=== PATIENT | female | born 1955 | race Caucasian/White ===

== ENCOUNTER 2020-07-24 09:39 | Emergency (ER) | payer OTHER, SELFPAY ==
--- NOTE | ~2020-07-24 | XR_ITS ---
EXAMINATION: XR lumbar spine 2-3V EXAM DATE: 07/24/2020 10:32 INDICATION: Chronic right hip pain. TECHNIQUE: Lumber spine frontal, lateral, lateral L5-S1 projections for interpretation. There is no prior study for comparison. FINDINGS: There is moderate disc disease at L4-5 with 2 mm anterolisthesis. The vertebral bodies are otherwise aligned. The vertebral body and disc heights are otherwise well maintained. No spondylolys is. There is mild to moderate aortic arterial sclerosis and evidence of mild aortic ectasia. There is mild to moderate lumbar facet arthropathy. Sacrum, sacroiliac joints, sacral arcuate lines are intac t. Paraspinal soft tissue is unremarkable. Bowel anastomotic material overlying the sacrum. IMPRESSION: 1. L4-5 moderate disc disease, minimal anterolisthesis. 2. Mild to moderate facet arthropathy. Reviewed, dictated and finalized at location A.
--- NOTE | ~2020-07-24 | XR_ITS ---
EXAMINATION: XR hip RT min 2V EXAM DATE: 07/24/2020 10:32 INDICATION: Chronic right hip pain. TECHNIQUE: Right hip frontal, crosstable lateral and 'frog-leg' projections for interpretation. Ther e is no prior study for comparison. FINDINGS: Smooth right hip femoral head contour, no radiographic evidence of avascular necrosis. The re is mild to moderate right hip primary osteoarthritis. There are no acute fractures or dislocations identified. There is no subcutaneous gas. The soft tissue is unremarkable. There are no radiopaq ue foreign bodies. IMPRESSION: Mild to moderate right hip osteoarthritis. Reviewed, dictated and finalized at location A.
[2020-07-24 10:07] VITALS: BP 180/92; PULSE 102; RESP 16; TEMP 36.8; O2SAT 99
--- NOTE | 2020-07-24 10:08 | ED.LOWEXIN ---
HPI - Extremity Injury (Lower) General Chief Complaint: Extremity Injury, Lower Stated Complaint: Hip,leg Pain Time Seen by Provider: 07/24/20 10:00 Source: patient Mode of arrival: ambulatory Limitations: no limitations History of Present Illness HPI Narrative: Emiliano Yeager is a 64-year-old female with a history of breast cancer with chemo and radiation, diverticulitis, who fell down stairs on April 18 and since that time is been having pain in her right lower back and hip that radiates into her right leg. She states it is excruciating at times is unable to bend straight down to pick something up without this level of pain Related Data Allergies Allergy/AdvReac Type Severity Reaction Status Date / Time codeine Allergy Intermediate Itching Verified 07/24/20 10:09 meperidine Allergy Unknown Swelling Verified 07/24/20 10:09 Review of Systems Review of Systems: Narrative: CONSTITUTIONAL: Denies fever, chills, sweats. EYES: Denies visual changes, redness, discharge. ENT: Denies rhinorrhea, congestion, sore throat, otalgia. CARDIOVASCULAR: Denies chest pain, palpitations, edema. RESPIRATORY: Denies dyspnea, wheezing, cough GASTROINTESTINAL: Denies abdominal pain, nausea, vomiting, diarrhea. GENITOURINARY: Denies dysuria, hematuria, abnormal discharge SKIN: Denies rash or itching. NEUROLOGIC: Denies numbness, or focal weakness. PSYCHIATRIC: Denies anxiety or depression. Right hip pain that radiates into lower leg PMF[facility] Past Medical History Medical History Diverticulitis large intestine History of breast cancer Surgical History Surgical History History of bowel resection Family History Family History (Updated 07/24/20 @ 10:11 by Sofiya Fernandez CNP) Other No acute medical problems Social History Social History (Updated 07/24/20 @ 10:12 by Sofiya Fernandez CNP) Smoking status: Never smoker Alcohol intake: never Gender identity (if verbalized by the patient): Female Comments At time of signature, I agree with nursing past medical, surgical, social and family history. There is no relevant family history pertinent to the presenting complaint. Exam Narrative: Exam Narrative: GENERAL: This is a well-nourished, well-developed patient, in moderate distress. HEAD: normocephalic, atraumatic. EYES: Sclera clear/white. Vision is grossly intact. EARS: External ears normal. Hearing grossly intact. NOSE: External nose normal without nasal discharge, nares without redness, no rhinorrhea. THROAT: Mucous membranes moist, NECK: Neck supple, non-tender CARDIOVASCULAR: Tachycardic rate and rhythm without murmurs, gallops, or rubs. RESPIRATORY: Clear to auscultation. Breath sounds equal bilaterally. No wheezes, rales, or rhonchi. GASTROINTESTINAL: Abdomen soft, SKIN: warm, intact with no suspicious lesions or rash, good texture and turgor. NEURO: awake, alert, and oriented to person, place and time. There were no obvious focal neurologic abnormalities. Steady gait EXTREMITIES: Normal range of motion. BACK: Nontender without deformity; unable to bend forward, must push leg out to bend, able to flex knee with pain Course Course Emergency Course: 61-year-old female comes to [facility] with complaints of right hip pain that radiates into her leg since a fall downstairs on April 18 X-ray of hip and lower back-R hip-mild to moderate osteoarthritis, lumbar spine L4-5 moderate disc disease and mild to moderate facet and thoracic arthropathy Started on muscle relaxant prednisone and limited pain medication Vital Signs Vital signs: Vital Signs Temperature 98.2 F 07/24/20 10:07 Pulse Rate 102 H 07/24/20 10:07 Respiratory Rate 16 07/24/20 10:07 Blood Pressure 180/92 H 07/24/20 10:07 Pulse Oximetry 99 07/24/20 10:07 Temperature 98.2 F 07/24/20 10:07 Pulse Rate 102 H 07/24/20 10:07 Respira
[2020-07-24] MEDS: predniSONE 20 MG TABLET 60 MG PO (11:03)
== END 2020-07-24 11:15 | disposition home or self-care (01) ==
PROVIDERS: Emergency Provider Nurse Practitioner
DX: M54.31 Sciatica, right side (principal); Z85.3 Personal history of malignant neoplasm of breast; Z92.21 Personal history of antineoplastic chemotherapy; Z92.3 Personal history of irradiation
CPT/HCPCS: 72100; 73502; 99213; G0463; J7512

== ENCOUNTER 2020-12-17 17:36 | Emergency (ER) | payer OTHER, SELFPAY ==
[2020-12-17 18:00] VITALS: BP 184/76; PULSE 84; RESP 16; TEMP 36.6; O2SAT 99
--- NOTE | 2020-12-17 18:20 | ED.FEMALEGU ---
HPI - Female Genitourinary General Chief complaint: Urogenital-Female Stated complaint: uti Time Seen by Provider: 12/17/20 18:21 Source: patient Mode of arrival: ambulatory Limitations: no limitations History of Present Illness HPI Narrative: 65-year-old female presents to the [facility] with burning, urgency and right flank pain for the last couple days, worse yesterday. Denies any vomiting or diarrhea. No chest pain or abdominal pain. States that week or so ago she started using fragrant pantiliners and then started having burning and urgency with urination. Developed right lower flank pain yesterday came in today because the pain and urinary symptoms became worse. Had some nausea without nausea or vomiting. Tried calling primary care provider but they are only in the office 3 days a week and was unable to schedule. MD elicited complaint: UTI Related Data Home Medications Medication Instructions Recorded Confirmed amlodipine 12/17/20 Allergies Allergy/AdvReac Type Severity Reaction Status Date / Time codeine Allergy Intermediate Itching Verified 07/24/20 10:09 meperidine Allergy Unknown Swelling Verified 07/24/20 10:09 Review of Systems Constitutional: Constitutional: Reports no additional constitutional complaints, Denies chills and Denies fatigue Eyes: Eyes: Reports no additional eye complaints ENT: Reports system reviewed and no additional complaints, except as documented Cardiovascular: Cardiovascular: Reports no additional cardiovascular complaints Respiratory: Respiratory: Reports no additional respiratory complaints Gastrointestinal: Gastrointestinal: Reports no additional gastrointestinal complaints Genitourinary: Genitourinary: Reports as per HPI, Reports nocturia and Reports dysuria Musculoskeletal: Musculoskeletal: Reports as per HPI and Reports back pain Integumentary/Breasts: Skin/Breast: Reports system reviewed and no additional complaints, except as docu Neurologic: Reports system reviewed and no additional complaints, except as documented Psychiatric: Psychiatric: Reports no additional psychiatric complaints Allergic/Immunologic: Allergic/Immunologic: Reports no additional allergic/immunologic complaints [facility] Past Medical History Medical History Diverticulitis large intestine History of breast cancer Surgical History Surgical History History of bowel resection Family History Family History Other No acute medical problems Social History Social History (Reviewed 12/18/20 @ 10:30 by Jesica Cruz Smoking status: Never smoker Alcohol intake: never Gender identity (if verbalized by the patient): Female Comments At the time of my signature, I reviewed and agree with the nursing past medical, surgical, social, and family history. There is no relevant family history pertinent to the patient complaint. Exam Const: General: healthy appearing, no acute distress and alert Nutritional Appearance: well nourished Orientation/consciousness: patient oriented x3 Limitations: no limitations HENMT: Head: normal to inspection Ears: external ears normal Eyes: Pupils: Equal, round and reactive pupils present Neck: Neck: normal visual inspection, no lymphadenopathy and no meningeal signs Chest: Chest palpation & inspection: normal inspection of the chest Resp: Effort & Inspection: normal respiratory effort and no use of accessory muscles Auscultation: clear to auscultation bilaterally, no crackles, no rales, no rhonchi and no wheezes Cardio: Rate: regular rate Rhythm: regular rhythm GI: GI Palp: Yes Soft to palpation, No Tenderness to palpation present (GI) and No Guarding due to palpation present (GI) : General: Yes no CVA tenderness Back/Spine/Pelvis: Back: no CVA tenderness Skin: General skin exam: normal colo
== END 2020-12-17 18:33 | disposition home or self-care (01) ==
PROVIDERS: Emergency Provider Nurse Practitioner
DX: N39.0 Urinary tract infection, site not specified (principal); Z85.3 Personal history of malignant neoplasm of breast
CPT/HCPCS: 81003; 87086; 99213; G0463

== ENCOUNTER 2021-10-18 18:20 | Emergency (ER) | payer OTHER, SELFPAY ==
--- NOTE | 2021-10-18 18:27 | ED.BACK ---
HPI - Back Pain/Injury General Chief Complaint: Back Pain/Injury Stated Complaint: lower back pain Time Seen by Provider: 10/18/21 18:28 Source: patient and RN notes reviewed Mode of arrival: ambulatory Limitations: no limitations History of Present Illness HPI Narrative: 66-year-old female presents to the [facility] with complaints of right lower back pain. Patient reports that it feels just like her sciatica. Patient has been given a courtesy call to make a history of hypertension and states she does take her amlodipine. States that she is in pain and that is why her blood pressure is up. Related Data Home Medications Medication Instructions Recorded Confirmed amlodipine 10 mg tablet 10 mg PO DAILY 10/18/21 10/18/21 Allergies Allergy/AdvReac Type Severity Reaction Status Date / Time codeine Allergy Intermediate Itching Verified 10/18/21 18:28 meperidine Allergy Unknown Swelling Verified 10/18/21 18:28 Review of Systems Review of Systems: All systems reviewed & are unremarkable except as noted in HPI and below Constitutional: Constitutional: Reports no additional constitutional complaints, Denies chills and Denies fever(s) Eyes: Eyes: Reports no additional eye complaints ENT: Reports system reviewed and no additional complaints, except as documented Cardiovascular: Cardiovascular: Reports no additional cardiovascular complaints Respiratory: Respiratory: Reports no additional respiratory complaints Gastrointestinal: Gastrointestinal: Reports no additional gastrointestinal complaints Musculoskeletal: Musculoskeletal: Reports as per HPI and Reports back pain (right lower SI ) Integumentary/Breasts: Skin/Breast: Reports system reviewed and no additional complaints, except as docu Neurologic: Reports system reviewed and no additional complaints, except as documented Psychiatric: Psychiatric: Reports no additional psychiatric complaints Allergic/Immunologic: Allergic/Immunologic: Reports no additional allergic/immunologic complaints ON LICENSE OF [facility] Past Medical History Medical History Diverticulitis large intestine History of breast cancer Surgical History Surgical History History of bowel resection Family History Family History Other No acute medical problems Social History Social History Smoking status: Never smoker Alcohol intake: never Gender identity (if verbalized by the patient): Female Comments At the time of my signature, I reviewed and agree with the nursing past medical, surgical, social, and family history. There is no relevant family history pertinent to the patient complaint. Exam Const: General: healthy appearing, no acute distress and alert Nutritional Appearance: well nourished Orientation/consciousness: patient oriented x3 Limitations: no limitations HENMT: Head: normal to inspection Ears: external ears normal Eyes: General: appearance normal, both eyes and all related structures Pupils: Equal, round and reactive pupils present Neck: Neck: normal visual inspection, no lymphadenopathy and no meningeal signs Chest: Chest palpation & inspection: normal inspection of the chest Resp: Effort & Inspection: normal respiratory effort and no use of accessory muscles Auscultation: clear to auscultation bilaterally, no crackles, no rales, no rhonchi and no wheezes Cardio: Rate: regular rate Rhythm: regular rhythm GI: GI Palp: Yes Soft to palpation and No Tenderness to palpation present (GI) Back/Spine/Pelvis: Back: no CVA tenderness Cervical Spine: normal cervical lordosis Thoracic/Lumbar Spine: thoracic and lumbar spine normal to inspection, thoraco-lumbar ROM limited, No thoracic spinal tenderness and No lumbar spinal tenderness Sacroiliac joints: on the right
[2021-10-18 18:28] VITALS: BP 181/87; PULSE 115; RESP 16; TEMP 36.4; O2SAT 99
[2021-10-18 18:35] VITALS: BP 181/87; PULSE 115; RESP 16; TEMP 36.4; O2SAT 99
== END 2021-10-18 18:40 | disposition home or self-care (01) ==
PROVIDERS: Emergency Provider Nurse Practitioner
DX: M54.41 Lumbago with sciatica, right side (principal)
CPT/HCPCS: 99213; G0463

== ENCOUNTER 2022-09-09 08:43 | Emergency (ER) | payer OTHER, SELFPAY ==
--- NOTE | 2022-09-09 08:52 | ED.GENADULT ---
HPI - General Adult General Chief complaint: Ear Stated complaint: lost hearing in right ear Source: patient and RN notes reviewed History of Present Illness HPI narrative: 67-year-old female presents to Urgent Care complains loss of hearing in her right ear x2 days. Patient reports some congestion. Patient states she is not currently taking hydroxyzine at night and will substitute with Benadryl occasionally for her eczema flare-up. Patient denies any ear pain, drainage from her ear, fevers, chills, or sore throat. Some parts of this dictation were generated by voice recognition software and may contain typographical and/or grammatical inaccuracies. Related Data Home Medications Medication Instructions Recorded Confirmed amlodipine 10 mg tablet 10 mg PO DAILY 10/18/21 09/09/22 hydroxyzine HCl 25 mg tablet 25 mg PO DAILY 09/09/22 09/09/22 Allergies Allergy/AdvReac Type Severity Reaction Status Date / Time codeine Allergy Intermediate Itching Verified 09/09/22 09:03 meperidine Allergy Intermediate Swelling Verified 09/09/22 09:03 Review of Systems Review of Systems: Pertinent positives and pertinent negatives per HPI. [facility] Past Medical History Medical History Diverticulitis large intestine History of breast cancer Surgical History Surgical History History of bowel resection Family History Family History Other No acute medical problems Social History Social History Smoking status: Never smoker Alcohol intake: never Gender identity (if verbalized by the patient): Female Comments At the time of my signature, I reviewed and agree with the nursing past medical, surgical, social, and family history. There is no relevant family history pertinent to the patient complaint. Exam Narrative: GENERAL: This is a well-nourished, well-developed patient, in no apparent distress. HEAD: normocephalic, atraumatic. EYES: Sclera clear/white. Vision is grossly intact. EARS: External ears normal, auditory canals clear and without drainage, TMs normal without perforation. Hearing grossly intact. Right sided TM noted to have clear effusion posteriorly. NO erythrema or drainage noted. NOSE: External nose normal with no obvious nasal discharge, nares without redness, no rhinorrhea. THROAT: Mucous membranes moist, posterior pharynx clear. NECK: Neck supple, non-tender without lymphadenopathy, masses or thyromegaly. CARDIOVASCULAR: Regular rate and rhythm without murmurs, gallops, or rubs. RESPIRATORY: Clear to auscultation. Breath sounds equal bilaterally. No wheezes, rales, or rhonchi. SKIN: warm, intact with no suspicious lesions or rash, good texture and turgor. NEURO: awake, alert, and oriented to person, place and time. There were no obvious focal neurologic abnormalities. Course Course Level of Care: Express Care Visit Vital Signs Vital signs: Vital Signs Temperature 96.4 F L 09/09/22 08:56 Pulse Rate 95 09/09/22 08:56 Respiratory Rate 16 09/09/22 08:56 Blood Pressure 158/84 H 09/09/22 08:56 Pulse Oximetry 99 09/09/22 08:56 Oxygen Delivery Room Air 09/09/22 08:56 Temperature 96.4 F L 09/09/22 08:56 Pulse Rate 95 09/09/22 08:56 Respiratory Rate 16 09/09/22 08:56 Blood Pressure 158/84 H 09/09/22 08:56 Pulse Oximetry 99 09/09/22 08:56 Oxygen Delivery Room Air 09/09/22 08:56 reviewed Medical Decision Making MDM Narrative Medical decision making narrative: Use the Flonase twice a day x 5-7 days. Continue taking the hydroxyzine or Benadryl. Follow up with ENT if symptoms persist over 7 days. Differential Diagnosis Differential Diagnosis: cerumen impaction, acute otitis media, otitis media with effusion Vital Signs Vital Signs: V
[2022-09-09 08:56] VITALS: BP 158/84; PULSE 95; RESP 16; TEMP 35.8; O2SAT 99
== END 2022-09-09 09:18 | disposition home or self-care (01) ==
PROVIDERS: Emergency Provider Nurse Practitioner Family
DX: H65.91 Unspecified nonsuppurative otitis media, right ear (principal); Z85.3 Personal history of malignant neoplasm of breast
CPT/HCPCS: 99203; G0463

== ENCOUNTER 2022-11-20 15:04 | Emergency (ER) | payer OTHER, SELFPAY ==
--- NOTE | 2022-11-20 15:09 | ED.GENADULT ---
HPI - General Adult General Chief complaint: Back Pain/Injury Stated complaint: Lower Back Pain Time Seen by Provider: 11/20/22 15:09 Source: patient Mode of arrival: ambulatory Limitations: no limitations History of Present Illness HPI narrative: 67-year-old female patient presents to the [facility] with complaints of right-sided low back pain x1 month. Patient states she had a stay in a hotel last night and states that she thinks that made the back pain significantly worse. Patient states that she does get radiating pain to the buttocks and around to the anterior thigh. Denies any numbness or tingling down the extremities. Denies any loss of bowel or bladder control. Denies any falls or recent trauma. Related Data Home Medications Medication Instructions Recorded Confirmed amlodipine 10 mg tablet 10 mg PO DAILY 10/18/21 11/20/22 hydroxyzine HCl 25 mg tablet 25 mg PO DAILY 09/09/22 11/20/22 Allergies Allergy/AdvReac Type Severity Reaction Status Date / Time codeine Allergy Intermediate Itching Verified 11/20/22 15:15 meperidine Allergy Intermediate Swelling Verified 11/20/22 15:15 Review of Systems Review of Systems: CONSTITUTIONAL: Denies fever, chills, or sweats. EYES: Denies visual changes, redness, or discharge. ENT: Denies rhinorrhea, congestion, sore throat, or otalgia. CARDIOVASCULAR: Denies chest pain, palpitations, or edema. RESPIRATORY: Denies cough or dyspnea. GASTROINTESTINAL: Denies abdominal pain, nausea, vomiting, or diarrhea. GENITOURINARY: Denies dysuria or hematuria. SKIN: Denies rash or itching. MUSCULOSKELETAL: Positive right side back pain, joint pain, or myalgia. NEUROLOGIC: Denies headache, numbness, or weakness. PSYCHIATRIC: Denies anxiety or depression. [facility] Past Medical History Medical History Diverticulitis large intestine History of breast cancer Surgical History Surgical History History of bowel resection Family History Family History Other No acute medical problems Social History Social History Smoking status: Never smoker Alcohol intake: never Gender identity (if verbalized by the patient): Female Comments At the time of my signature I agree with nursing past medical history, surgical, social, and family history. There is no relevant family history pertinent to the presenting complaint. Exam Narrative: GENERAL: Well-appearing, well-nourished, and in no acute distress. HEAD: Normocephalic, atraumatic. EYES: PERRLA and EOMI. ENT: Nares clear, no rhinorrhea or epistaxis. Mucous membranes moist. NECK: Supple. No lymphadenopathy CHEST: Clear to auscultation. No respiratory distress. HEART: Regular rate and rhythm. No murmur heard. Normal peripheral pulses. ABDOMEN: Soft, nontender, nondistended, normal active bowel sounds. EXTREMITIES: Normal range of motion. No edema. BACK: Patient is able to ambulated without assistance. Pt is seated on the stretcher in no obvouis distress. No surface trauma noted. No muscle tenderness to Palpation. Tenderness noted to the middle of the right buttocks and to the lateral side of the L5 area on palpation. No obvious spasm or mass. No step-offs or deformity noted to the cervical, thoracic or lumbar spine to firm Palpation at the midline. No CVA tenderness to percussion. No saddle anesthesia. ROM: able to stand erect. Decrease in flexion, extension, Lateral bending and rotation. SKIN: Warm, dry, no rash. NEURO: No focal deficits. Alert and oriented x3. Course Course Level of Care: Express Care Visit Vital Signs Vital signs: Vital Signs Temperature 37.1 C 11/20/22 15:13 Pulse Rate 104 H 11/20/22 15:13 Respiratory Rate 16 11/20/22 15:13 Blood Pressure 143/76 H 11/20/22 15:13 Pulse Oxime
[2022-11-20 15:13] VITALS: BP 143/76; PULSE 104; RESP 16; TEMP 37.1; O2SAT 98
[2022-11-20 15:16] VITALS: BP 143/76; PULSE 104; RESP 16; TEMP 37.1; O2SAT 98
== END 2022-11-20 15:35 | disposition home or self-care (01) ==
PROVIDERS: Emergency Provider Nurse Practitioner Family
DX: M54.31 Sciatica, right side (principal); Z85.3 Personal history of malignant neoplasm of breast
CPT/HCPCS: 99213; G0463

== ENCOUNTER 2023-10-07 12:46 | Emergency (ER) | payer OTHER, SELFPAY ==
--- NOTE | 2023-10-07 12:54 | ED.SKABFB ---
HPI - Skin/Abscess/Foreign Bdy General Chief complaint: Skin/Abscess/Foreign Body Stated complaint: Skin Irriation Time Seen by Provider: 10/07/23 13:11 Source: patient and RN notes reviewed Mode of arrival: ambulatory Limitations: no limitations History of Present Illness HPI narrative: 68-year-old female presents with concern for rash, itchy legs, itchiness and peeling skin on the palm of her hands, itchiness and healing skin on her scalp. She reports this is been going on for ?a long time?. She reports she has that appointment with a abalone fisherman but it is not until November. She denies swollen lips, swollen tongue. She denies new home care products, personal care products, medications. She has been using alcohol wipes on her hands. MD complaint: rash Related Data Home Medications Medication Instructions Recorded Confirmed amlodipine 10 mg tablet 10 mg PO DAILY 10/18/21 10/07/23 hydroxyzine HCl 25 mg tablet 25 mg PO DAILY 09/09/22 10/07/23 alprazolam 0.25 mg tablet 0.25 mg PO DIRECTED 10/07/23 10/07/23 Allergies Allergy/AdvReac Type Severity Reaction Status Date / Time codeine Allergy Intermediate Itching Verified 10/07/23 12:52 meperidine Allergy Intermediate Swelling Verified 10/07/23 12:52 Review of Systems Review of Systems: CONSTITUTIONAL: Denies malaise, chills, sweats, or fever. EYES: Denies redness, or discharge. ENT: Denies rhinorrhea, congestion, swollen lips, swollen tongue CARDIOVASCULAR: Denies chest pain, palpitations, or edema. RESPIRATORY: Denies cough or dyspnea. GASTROINTESTINAL: Denies abdominal pain, nausea, vomiting SKIN: Reports rash, itchy seeing, burning sting, peeling skin on the palm of the hands, legs, scalp MUSCULOSKELETAL: Denies joint pain or myalgia. NEUROLOGIC: Denies headache. All systems reviewed & are unremarkable except as noted in HPI and below PMFSH Past Medical History Medical History Diverticulitis large intestine History of breast cancer Surgical History Surgical History History of bowel resection Family History Family History Other No acute medical problems Social History Social History Smoking status: Never smoker Alcohol intake: never Gender identity (if verbalized by the patient): Female Comments At time of signature, agree with nursing past medical, surgical, social and family history. There is no relevant family history pertinent to the presenting complaint Exam Narrative: GENERAL: Well-appearing, well-nourished, and in no acute distress. HEAD: Normocephalic, atraumatic. EYES: PERRLA, conjunctivae clear, and EOMI. ENT: Mucous membranes moist. Oropharynx without edema, erythema or lesions. NECK: Supple. No lymphadenopathy CHEST: Clear to auscultation. No respiratory distress. HEART: Regular rate and rhythm. SKIN: Warm, dry. Papular rash noted to lower legs. No other rash noted, no peeling skin noted on the hands. Some flaky skin noted on the scalp NEURO: Alert and oriented x3. PSYCH: Normal mood and affect Course Course Emergency Course: Patient is aware of diagnosis, understands and agrees to treatment plan. Anticipatory guidance given. Patient agrees to follow-up as directed and is aware of reasons to seek care at the emergency department. Portions of this record may have been created with voice recognition software Level of Care: Express Care Visit Vital Signs Vital signs: Reviewed. MDM - Skin/Abscess/Foreign Bdy MDM Narrative Medical decision making narrative: Does not appear at this time to be erythema multiforme, bullous, SJS, TEN; no evidence at this time to suggest RMSF, endocarditis or Lyme disease; patient looks well, nontoxic and is tolerating oral intake; no neurologic signs or symptoms; no
[2023-10-07 13:04] VITALS: BP 152/67; PULSE 90; RESP 18; TEMP 36.5; O2SAT 100
== END 2023-10-07 13:25 | disposition home or self-care (01) ==
PROVIDERS: Emergency Provider Nurse Practitioner
DX: L30.9 Dermatitis, unspecified (principal); Z85.3 Personal history of malignant neoplasm of breast
CPT/HCPCS: 99213; G0463

== ENCOUNTER 2024-01-26 13:27 | Emergency (ER) | payer OTHER, SELFPAY ==
[2024-01-26 13:35] VITALS: BP 141/66; PULSE 89; RESP 18; TEMP 36.8; O2SAT 100
--- NOTE | 2024-01-26 13:41 | ED.GENADULT ---
HPI - General Adult General Chief complaint: Skin/Abscess/Foreign Body Stated complaint: rash Time Seen by Provider: 01/26/24 13:41 Source: patient, RN notes reviewed and old records reviewed Mode of arrival: ambulatory Limitations: no limitations History of Present Illness HPI narrative: 68-year-old female presents to the [facility] with complaints of a Rash since Tuesday, 4 days. Has taken Benadryl and used a topical cream. Denies any new creams ointments lotions detergents. Describes the rash as both itching and burning. Related Data Home Medications Medication Instructions Recorded Confirmed amlodipine 10 mg tablet 10 mg PO DAILY 10/18/21 01/26/24 alprazolam 0.25 mg tablet 0.25 mg PO DIRECTED 10/07/23 01/26/24 Allergies Allergy/AdvReac Type Severity Reaction Status Date / Time codeine Allergy Intermediate Itching Verified 10/07/23 12:52 meperidine Allergy Intermediate Swelling Verified 10/07/23 12:52 Review of Systems Review of Systems: All systems reviewed & are unremarkable except as noted in HPI and below Constitutional: Constitutional: Reports no additional constitutional complaints Eyes: Eyes: Reports no additional eye complaints ENT: Reports system reviewed and no additional complaints, except as documented Cardiovascular: Cardiovascular: Reports no additional cardiovascular complaints, Denies chest pain and Denies dyspnea Respiratory: Respiratory: Reports no additional respiratory complaints, Denies chest congestion, Denies cough and Denies dyspnea Gastrointestinal: Gastrointestinal: Reports no additional gastrointestinal complaints, Denies abdominal pain, Denies nausea and Denies vomiting Musculoskeletal: Musculoskeletal: Reports no additional musculoskeletal complaints Integumentary/Breasts: Skin/Breast: Reports as per HPI and Reports rash Neurologic: Reports system reviewed and no additional complaints, except as documented Psychiatric: Psychiatric: Reports no additional psychiatric complaints Allergic/Immunologic: Allergic/Immunologic: Reports no additional allergic/immunologic complaints [facility] Past Medical History Medical History Diverticulitis large intestine History of breast cancer Surgical History Surgical History History of bowel resection Family History Family History Other No acute medical problems Social History Social History Smoking status: Never smoker Alcohol intake: never Gender identity (if verbalized by the patient): Female Comments At the time of my signature, I reviewed and agree with the nursing past medical, surgical, social, and family history. There is no relevant family history pertinent to the patient complaint. Exam Const: General: cooperative, healthy appearing, comfortable, no acute distress, well developed, alert and well nourished Nutritional Appearance: well nourished Orientation/consciousness: patient oriented x3 Limitations: no limitations HENMT: Head: normal to inspection Ears: external ears normal Face/Nose/Sinus: Normal external nose present, normal facial exam and face symmetric Face and sinus: normal facial exam and face symmetric Eyes: General: appearance normal, both eyes and all related structures Alignment and Position: alignment normal Periorbital: periorbital findings normal Neck: Neck: normal visual inspection, full ROM, no lymphadenopathy and no meningeal signs Chest: Chest palpation & inspection: normal inspection of the chest Resp: Effort & Inspection: normal respiratory effort and able to speak in complete sentences Cardio: Rate: regular rate Skin: General skin exam: normal color and no rashes or lesions noted Lesions: no lesions Trauma: no lacerations or abrasions Wounds: no wounds Other:
== END 2024-01-26 14:12 | disposition home or self-care (01) ==
PROVIDERS: Emergency Provider Nurse Practitioner
DX: L30.9 Dermatitis, unspecified (principal); Z85.3 Personal history of malignant neoplasm of breast
CPT/HCPCS: 99213; G0463

== ENCOUNTER 2024-02-20 13:11 | Emergency (ER) | payer OTHER, SELFPAY ==
[2024-02-20 13:21] VITALS: BP 151/69; PULSE 102; RESP 20; TEMP 37.5; O2SAT 99
--- NOTE | 2024-02-20 13:41 | ED.SKABFB ---
HPI - Skin/Abscess/Foreign Bdy General Chief complaint: Skin/Abscess/Foreign Body Stated complaint: Skin Issues Source: patient, RN notes reviewed and old records reviewed Mode of arrival: ambulatory Limitations: no limitations History of Present Illness HPI narrative: Patient presents with complaints of generalized itching. She reports that she has had an itchy red rash for a couple of months. She does have an appointment scheduled with a ink jet operator. Last month she took oral steroids and said she had good results. She has tried multiple topicals with minimal improvement. She denies any recent change in lotions, soaps, detergents. No other concerns Related Data Home Medications Medication Instructions Recorded Confirmed amlodipine 10 mg tablet 10 mg PO DAILY 10/18/21 02/20/24 alprazolam 0.25 mg tablet 0.25 mg PO DIRECTED 10/07/23 02/20/24 Allergies Allergy/AdvReac Type Severity Reaction Status Date / Time codeine Allergy Intermediate Itching Verified 02/20/24 13:27 meperidine Allergy Intermediate Swelling Verified 02/20/24 13:27 Review of Systems Review of Systems: All systems reviewed & are unremarkable except as noted in HPI and below Constitutional: Constitutional: Reports no additional constitutional complaints ENT: Reports system reviewed and no additional complaints, except as documented Cardiovascular: Cardiovascular: Reports no additional cardiovascular complaints Respiratory: Respiratory: Reports no additional respiratory complaints Gastrointestinal: Gastrointestinal: Reports no additional gastrointestinal complaints Integumentary/Breasts: Skin/Breast: Reports system reviewed and no additional complaints, except as docu and Reports as per HPI [facility] Past Medical History Medical History Diverticulitis large intestine History of breast cancer Surgical History Surgical History History of bowel resection Family History Family History Other No acute medical problems Social History Social History Smoking status: Never smoker Alcohol intake: never Gender identity (if verbalized by the patient): Female Comments At the time of my signature, I reviewed and agree with the nursing past medical, surgical, social, and family history. There is no relevant family history pertinent to the patient complaint. Exam Const: General: cooperative, no acute distress, alert and awake Orientation/consciousness: oriented to person, oriented to place and oriented to time HENMT: Head: normal to inspection Resp: Effort & Inspection: normal respiratory effort and able to speak in complete sentences Auscultation: clear to auscultation bilaterally, no crackles, no rales, no rhonchi and no wheezes Cardio: Palpation: normal PMI Rate: regular rate Rhythm: regular rhythm Heart sounds: S1 normal heart sound present and S2 normal heart sound present Skin: General skin exam: no rashes or lesions noted Other: No rashes noted, but skin is generally red and appears irritated Neuro: General: oriented to person, oriented to place and oriented to time Cranial nerves: Yes CN's II-XII intact bilaterally Psych: Appearance: grossly normal Thought process: Normal thought process present Insight: Good insight present (Psych) Judgement: Good judgement present (Psych) Course Course Level of Care: Express Care Visit Vital Signs Vital signs: Vital Signs Temperature 99.5 F 02/20/24 13:21 Pulse Rate 102 H 02/20/24 13:21 Respiratory Rate 20 02/20/24 13:21 Blood Pressure 151/69 H 02/20/24 13:21 Pulse Oximetry 99 02/20/24 13:21 Oxygen Delivery Room Air 02/20/24 13:21 Temperature 99.5 F 02/20/24 13:21 Pulse Rate 102 H 02/20/24 13:21 Respiratory Rate 20 02/20/24 13:21 Blood Pressure 151/69 H 02/20/24 13:21 Pulse Oximetry 99 02/20/24 13:21 Oxygen Delivery Room Air 02/20/24 13:21 Reviewed MDM - Skin/Abscess/Foreign Bdy MDM Narrative Medical decision making narrative: Patient with no discernible rash. She does have red irritated skin. Has pending dermatology appointment. Start hydroxyzine while waiting. Discharge instructions reviewed with patient, as well as provided in writing per nursing staff. The instructions also include specific and strict return/GO TO THE ER as well as f/u information. All questions have been answered, and the patient deny any further questions with discharge and discharge plan. Some parts of this dictation were generated by voice recognition software and may contain typographical and/or grammatical inaccuracies. Differential Diagnosis Differential diagnosis: Likely viral exanthem, dermatophytosis and urticaria Discharge Plan Discharge Clinical Impression: Itching Patient Disposition: Home, Self-Care Condition: Stable Instructions: Antibiotic Form, Itchy Skin (ED) Additional Instructions: Take medications as prescribed. Follow with primary care provider. Emergency department for new or worse symptoms Patient Language: Brazilian Prescriptions: New hydroxyzine HCl 50 mg tablet 50 mg PO TID PRN (Reason: itching) Qty: 60 0RF hydroxyzine HCl 50 mg tablet 50 mg PO TID PRN (Reason: itching) Qty: 60 0RF No Action amlodipine 10 mg tablet 10 mg PO DAILY alprazolam 0.25 mg tablet 0.25 mg PO DIRECTED Follow-up/Referrals: PHYSICIAN,MATHEMATICS TECHNICIAN [Primary Care Provider] - Time of Disposition: 13:51
== END 2024-02-20 13:55 | disposition home or self-care (01) ==
PROVIDERS: Emergency Provider Nurse Practitioner Family
DX: L29.9 Pruritus, unspecified (principal); Z85.3 Personal history of malignant neoplasm of breast
CPT/HCPCS: 99213; G0463